=== PATIENT | female | born 1950 | race Caucasian/White ===

== ENCOUNTER 2019-08-21 12:24 | Inpatient (IN) ==
[2019-08-21] MEDS ORDERED: MetroNIDAZOLE 500 MG/100 ML 500 MG/100 ML BAG IVPB ONE (13:40)
[2019-08-21 13:44] LABS: Bilirubin,Urine Moderate (Negative); Blood,Urine Negative (Negative); Clarity,Urine Clear (Clear); Color,Urine Orange (Yellow); Glucose,Urine (UA) Normal (Normal); Ketones,Urine Trace mg/dL (Negative); Leukocyte Esterase,Urine Small (Negative); Nitrite,Urine Positive (Negative); PH,Urine 6.5 pH Units (5.0-8.0); Protein,Urine Trace mg/dL (Neg-Trace); Specific Gravity,Urine 1.018 (1.010-1.025); Urobilinogen,Urine Normal (Normal)
[2019-08-21 13:45] LABS: Bacteria,Urine None Seen per hpf (None-Few); Hyaline Casts,Urine None Seen per lpf (None-Few); RBC,Urine 0-3 per hpf (0-3); Squamous Epithelial Cell,Urine Many per lpf (None-Few)
[2019-08-21 13:56] LABS: Amorphous Sediment,Urine Few per hpf (Few)
[2019-08-21 14:00] LABS: Hemoglobin 13.8 g/dL (11.5-15.4); Lymphocytes # 0.4 K/mcL (0.6-4.6); Mean Corpuscular HGB Conc 32.1 g/dL (31.6-35.5); Mean Corpuscular Hemoglobin 29.4 pg (28.0-33.3); Mean Corpuscular Volume 91.7 fL (83.0-100.0); Mean Platelet Volume 10.6 fL (9.4-12.4); Platelet Count 300 K/mcL (140-400); Red Blood Count 4.69 M/mcL (3.82-4.97); Red Cell Distribution Width 13.6 % (11.5-14.5); White Blood Count 21.1 K/mcL (4.3-11.1)
[2019-08-21 14:02] LABS: INR 1.1; Prothrombin Time 12.7 Seconds (9.4-12.1)
[2019-08-21 14:04] LABS: Activated Partial Thrombo Time 25.2 Seconds (26.0-36.0)
[2019-08-21 14:16] LABS: Alanine Aminotransferase 305 Units/L (7-52); Albumin/Globulin Ratio 1.7 (1.1-2.2); Alkaline Phosphatase 196 Units/L (34-104); Amylase 179 Units/L (29-103); Aspartate Amino Transferase 447 Units/L (13-39); BUN/Creatinine Ratio 20 (6-26); Bilirubin,Total 4.9 mg/dL (0.3-1.0); Blood Urea Nitrogen 21 mg/dL (8-23); Calcium 9.5 mg/dL (8.6-10.3); Carbon Dioxide 27 mEq/L (23-29); Chloride 99 mEq/L (98-107); Globulin 2.4 g/dL (2.4-3.5); Glucose 143 mg/dL (70-105); Lipase 504 Units/L (11-82); Osmolality,Calculated 289 (280-300); Potassium 3.5 mEq/L (3.5-5.1); Sodium 137 mEq/L (136-145); Total Protein 6.4 g/dL (6.4-8.9); eGFR For African Americans > 60 (> 60); eGFR For Non-African Americans 51 (> 60)
[2019-08-21] MEDS ORDERED: Aspirin 81 MG TAB.CHEW PO STA (14:23)
[2019-08-21 14:31] LABS: Monocytes # 0.4 K/mcL (0.0-1.3); Neutrophils # 20.3 K/mcL (1.6-8.9); Platelet Estimate Normal (Normal)
[2019-08-21 14:46] LABS: Troponin I < 0.03 ng/mL (< 0.04)
[2019-08-21] MEDS ORDERED: 0.9 % Sodium Chloride 1,000 ML IVC SCH (15:15)
[2019-08-21] MEDS ORDERED: Acetaminophen 325 MG TABLET PO PRN (15:17)
[2019-08-21] MEDS ORDERED: Naloxone 0.4 MG/ML INJ IVP PRN (15:17)
[2019-08-21] MEDS ORDERED: D5% in Water 1,000 ML IVC PRN (15:23)
[2019-08-21] MEDS ORDERED: Dextrose Gel 15 GM/37.5 ML TUBE PO PRN ×2 (15:23)
[2019-08-21] MEDS ORDERED: Nitroglycerin 0.4 MG TAB.SUBL SL PRN (15:30)
[2019-08-21 15:44] LABS: Acetaminophen < 10 mcg/mL (10-20); Salicylate < 2.5 mg/dL (15.0-30.0)
[2019-08-21 16:07] LABS: Hepatitis B Surface Antigen Nonreactive (Nonreactive)
[2019-08-21 16:36] LABS: Hepatitis B Core IgM Nonreactive (Nonreactive)
[2019-08-21 16:37] LABS: Hepatitis C Virus Antibody Nonreactive (Nonreactive)
[2019-08-21 16:38] LABS: Hepatitis A Antibody IgM Nonreactive (Nonreactive)
[2019-08-21] MEDS ORDERED: *HR* Labetalol 20 MG/4 ML SYRINGE IVP PRN (17:27)
[2019-08-21] MEDS: Piperacillin/Tazobactam 3.375 GM in 0.9 % Sodium Chloride Mini Bag 100 ML IVPB SCH (18:22)
[2019-08-21] MEDS: Pantoprazole 40 MG VIAL IVP SCH (18:22)
[2019-08-21] MEDS: Insulin LISPRO 300 UNITS/3 ML VIAL SQ SCH (18:22)
[2019-08-21] MEDS ORDERED: Ibuprofen 600 MG TABLET PO ONE (20:15)
[2019-08-21] MEDS: Albuterol 2.5 MG/3 ML NEBULIZER IH PRN (20:24)
[2019-08-21] MEDS: Ipratropium/Albuterol Neb 3 ML IH SCH (23:36)
[2019-08-22] MEDS: Insulin LISPRO 300 UNITS/3 ML VIAL SQ SCH ×4 (01:02→17:48)
[2019-08-22] MEDS: *HR* Heparin 5,000 UNIT/ML VIAL SQ SCH ×4 (01:04→21:13)
[2019-08-22] MEDS: Piperacillin/Tazobactam 3.375 GM in 0.9 % Sodium Chloride Mini Bag 100 ML IVPB SCH ×3 (01:04→16:43)
[2019-08-22] MEDS: Ringers Solution, Lactated 1,000 ML IVC SCH (01:09)
[2019-08-22] MEDS: Ipratropium/Albuterol Neb 3 ML IH SCH ×4 (03:39→21:37)
[2019-08-22 04:57] LABS: Basophils % 0.1 %; Eosinophils % 0.2 %; Hematocrit 34.1 % (35.3-44.9); Hemoglobin 10.9 g/dL (11.5-15.4); Lymphocytes # 1.2 K/mcL (0.6-4.6); Lymphocytes % 5.6 %; Mean Corpuscular Hemoglobin 29.9 pg (28.0-33.3); Mean Corpuscular Volume 93.4 fL (83.0-100.0); Monocytes # 0.8 K/mcL (0.0-1.3); Monocytes % 3.9 %; Nucleated Red Blood Cells 0.1 /100 WBC (0); Platelet Count 232 K/mcL (140-400); Red Blood Count 3.65 M/mcL (3.82-4.97); Red Cell Distribution Width 13.8 % (11.5-14.5); Segmented Neutrophils % 88.2 %; White Blood Count 21.3 K/mcL (4.3-11.1)
[2019-08-22 05:10] LABS: Neutrophils # 18.8 K/mcL (1.6-8.9)
[2019-08-22 05:17] LABS: Amylase 68 Units/L (29-103); Lipase 129 Units/L (11-82)
[2019-08-22 05:29] LABS: Alanine Aminotransferase 291 Units/L (7-52); Albumin 3.6 g/dL (3.5-5.7); Albumin/Globulin Ratio 1.8 (1.1-2.2); Alkaline Phosphatase 150 Units/L (34-104); Aspartate Amino Transferase 423 Units/L (13-39); BUN/Creatinine Ratio 28 (6-26); Bilirubin,Total 14.5 mg/dL (0.3-1.0); Blood Urea Nitrogen 30 mg/dL (8-23); Calcium 8.7 mg/dL (8.6-10.3); Carbon Dioxide 26 mEq/L (23-29); Chloride 101 mEq/L (98-107); Glucose 96 mg/dL (70-105); Magnesium 1.6 mg/dL (1.6-2.6); Osmolality,Calculated 292 (280-300); Phosphorous 4.5 mg/dL (2.7-4.5); Potassium 3.4 mEq/L (3.5-5.1); Sodium 138 mEq/L (136-145); Total Protein 5.6 g/dL (6.4-8.9); eGFR For African Americans > 60 (> 60); eGFR For Non-African Americans 50 (> 60)
[2019-08-22 06:05] LABS: Acinetobacter baumannii by PCR Not Detected (Not Detect); Candida albicans by PCR Not Detected (Not Detect); Candida glabrata by PCR Not Detected (Not Detect); Candida krusei by PCR Not Detected (Not Detect); Candida parapsilosis by PCR Not Detected (Not Detect); Candida tropicalis by PCR Not Detected (Not Detect); Enterobacter cloacae Cmplx PCR Not Detected (Not Detect); Enterococcus by PCR Not Detected (Not Detect); Escherichia coli by PCR Not Detected (Not Detect); Klebsiella oxytoca by PCR DETECTED (Not Detect); Klebsiella pneumoniae by PCR Not Detected (Not Detect); Proteus by PCR Not Detected (Not Detect); Pseudomonas aeruginosa by PCR Not Detected (Not Detect); Serratia marcescens by PCR Not Detected (Not Detect); Staphylococcus aureus by PCR Not Detected (Not Detect); Staphylococcus by PCR Not Detected (Not Detect); Streptococcus agalactiae(B)PCR Not Detected (Not Detect); Streptococcus by PCR Not Detected (Not Detect); Streptococcus pneumoniae PCR Not Detected (Not Detect); Streptococcus pyogenes (A) PCR Not Detected (Not Detect); blaKPC Carbapenem-Resist Gene Not Detected (Not Detect)
[2019-08-22 06:07] LABS: Platelet Estimate Normal (Normal)
[2019-08-22] MEDS: Pantoprazole 40 MG VIAL IVP SCH (08:42)
[2019-08-22] MEDS: Isosorbide MONOnitrate (24 HR) 60 MG TAB.ER.24H PO SCH (08:42)
[2019-08-22 10:19] LABS: Immature Reticulocyte % 14.8 % (11.0-38.0); Retculocyte # 0.1 M/mcL (0.05-0.10)
[2019-08-22 10:29] LABS: INR 1.4; Prothrombin Time 16.3 Seconds (9.4-12.1)
[2019-08-22] MEDS: Tiotropium 18 MCG inhalation IH SCH (10:52)
[2019-08-22] MEDS ORDERED: Ibuprofen 400 MG TABLET PO ONE (21:34)
[2019-08-23] MEDS: Insulin LISPRO 300 UNITS/3 ML VIAL SQ SCH ×4 (00:20→17:50)
[2019-08-23] MEDS: Piperacillin/Tazobactam 3.375 GM in 0.9 % Sodium Chloride Mini Bag 100 ML IVPB SCH ×4 (00:24→23:57)
[2019-08-23 04:25] LABS: Basophils # 0.1 K/mcL (0.0-0.2); Basophils % 0.6 %; Eosinophils # 0.4 K/mcL (0.0-0.6); Eosinophils % 2.9 %; Hematocrit 27.8 % (35.3-44.9); Immature Granulocytes % 1.3 % (0-4); Lymphocytes # 1.3 K/mcL (0.6-4.6); Lymphocytes % 9.3 %; Mean Corpuscular HGB Conc 32.4 g/dL (31.6-35.5); Mean Corpuscular Hemoglobin 30.6 pg (28.0-33.3); Mean Corpuscular Volume 94.6 fL (83.0-100.0); Mean Platelet Volume 11.6 fL (9.4-12.4); Monocytes # 0.7 K/mcL (0.0-1.3); Monocytes % 4.6 %; Neutrophils # 11.7 K/mcL (1.6-8.9); Platelet Count 196 K/mcL (140-400); Red Blood Count 2.94 M/mcL (3.82-4.97); Red Cell Distribution Width 14.6 % (11.5-14.5); Segmented Neutrophils % 81.3 %; White Blood Count 14.4 K/mcL (4.3-11.1)
[2019-08-23 04:48] LABS: BUN/Creatinine Ratio 29 (6-26); Blood Urea Nitrogen 20 mg/dL (8-23); Calcium 8.5 mg/dL (8.6-10.3); Carbon Dioxide 30 mEq/L (23-29); Chloride 104 mEq/L (98-107); Glucose 97 mg/dL (70-105); Magnesium 1.9 mg/dL (1.6-2.6); Osmolality,Calculated 289 (280-300); Phosphorous 2.3 mg/dL (2.7-4.5); Potassium 3.4 mEq/L (3.5-5.1); Sodium 138 mEq/L (136-145); eGFR For African Americans > 60 (> 60); eGFR For Non-African Americans > 60 (> 60)
[2019-08-23 04:52] LABS: Large Platelets Present (Not Present); Platelet Estimate Normal (Normal)
[2019-08-23] MEDS ORDERED: Ringers Solution, Lactated 1,000 ML ONE (04:56)
[2019-08-23] MEDS: *HR* Heparin 5,000 UNIT/ML VIAL SQ SCH ×2 (04:59→13:45)
[2019-08-23] MEDS: Ringers Solution, Lactated 1,000 ML IVC SCH (05:01)
[2019-08-23] MEDS: Pantoprazole 40 MG VIAL IVP SCH (07:45)
[2019-08-23] MEDS: Isosorbide MONOnitrate (24 HR) 60 MG TAB.ER.24H PO SCH (07:45)
[2019-08-23 10:41] LABS: Alanine Aminotransferase 153 Units/L (7-52); Albumin 3.5 g/dL (3.5-5.7); Albumin/Globulin Ratio 1.6 (1.1-2.2); Alkaline Phosphatase 118 Units/L (34-104); Aspartate Amino Transferase 123 Units/L (13-39); BUN/Creatinine Ratio 31 (6-26); Bilirubin,Direct 1.2 mg/dL (0.0-0.2); Bilirubin,Indirect 1.9 mg/dL (0.0-1.0); Bilirubin,Total 3.1 mg/dL (0.3-1.0); Blood Urea Nitrogen 18 mg/dL (8-23); Calcium 8.8 mg/dL (8.6-10.3); Carbon Dioxide 26 mEq/L (23-29); Chloride 105 mEq/L (98-107); Gamma Glutamyl Transpeptidase 245 Units/L (7-64); Globulin 2.2 g/dL (2.4-3.5); Glucose 96 mg/dL (70-105); Lactate Dehydrogenase 465 Units/L (140-271); Lipase 171 Units/L (11-82); Osmolality,Calculated 288 (280-300); Potassium 3.5 mEq/L (3.5-5.1); Sodium 138 mEq/L (136-145); Total Protein 5.7 g/dL (6.4-8.9); eGFR For African Americans > 60 (> 60); eGFR For Non-African Americans > 60 (> 60)
[2019-08-23] MEDS: Tiotropium 18 MCG inhalation IH SCH (10:42)
[2019-08-23] MEDS ORDERED: Ringers Solution, Lactated 1,000 ML IVC SCH (23:45)
[2019-08-24] MEDS: *HR* Dextrose 50 % in Water (Syg) 50 ML SYRINGE IVP PRN ×2 (00:18→06:04)
[2019-08-24] MEDS: Insulin LISPRO 300 UNITS/3 ML VIAL SQ SCH ×5 (03:27→23:52)
[2019-08-24 04:55] LABS: Hematocrit 26.4 % (35.3-44.9); Hemoglobin 8.5 g/dL (11.5-15.4); Mean Corpuscular HGB Conc 32.2 g/dL (31.6-35.5); Mean Corpuscular Hemoglobin 30.6 pg (28.0-33.3); Mean Platelet Volume 11.2 fL (9.4-12.4); Platelet Count 196 K/mcL (140-400); Red Blood Count 2.78 M/mcL (3.82-4.97); Red Cell Distribution Width 14.7 % (11.5-14.5); Segmented Neutrophils % 78.8 %; White Blood Count 14.6 K/mcL (4.3-11.1)
[2019-08-24 04:56] LABS: Basophils # 0.1 K/mcL (0.0-0.2); Basophils % 0.6 %; Eosinophils # 0.4 K/mcL (0.0-0.6); Eosinophils % 2.7 %; Immature Granulocytes % 0.8 % (0-4); Lymphocytes # 1.4 K/mcL (0.6-4.6); Lymphocytes % 9.4 %; Monocytes # 1.1 K/mcL (0.0-1.3); Monocytes % 7.7 %; Neutrophils # 11.5 K/mcL (1.6-8.9)
[2019-08-24 05:16] LABS: Albumin 3.3 g/dL (3.5-5.7); Albumin/Globulin Ratio 1.3 (1.1-2.2); Bilirubin,Direct 0.9 mg/dL (0.0-0.2); Bilirubin,Indirect 1.3 mg/dL (0.0-1.0); Bilirubin,Total 2.2 mg/dL (0.3-1.0); Globulin 2.5 g/dL (2.4-3.5); Total Protein 5.8 g/dL (6.4-8.9)
[2019-08-24 05:18] LABS: % Iron Saturation 7 % (15-50); BUN/Creatinine Ratio 32 (6-26); Blood Urea Nitrogen 16 mg/dL (8-23); Calcium 8.5 mg/dL (8.6-10.3); Carbon Dioxide 25 mEq/L (23-29); Chloride 109 mEq/L (98-107); Glucose 73 mg/dL (70-105); Iron 20 mcg/dL (50-170); Magnesium 1.8 mg/dL (1.6-2.6); Osmolality,Calculated 296 (280-300); Potassium 3.9 mEq/L (3.5-5.1); Sodium 143 mEq/L (136-145); Transferrin 202 mg/dL (203-362); eGFR For African Americans > 60 (> 60); eGFR For Non-African Americans > 60 (> 60)
[2019-08-24 05:35] LABS: Ferritin 748 ng/mL (10-120)
[2019-08-24 05:42] LABS: Folate > 22.3 ng/mL (3.0-16.0); Vitamin B12 508 pg/mL (250-1100)
[2019-08-24] MEDS: Tiotropium 18 MCG inhalation IH SCH (07:53)
[2019-08-24] MEDS: Multivit/Ca/Min/Fe/FA 1 TAB TABLET PO SCH (08:35)
[2019-08-24] MEDS: Isosorbide MONOnitrate (24 HR) 60 MG TAB.ER.24H PO SCH (08:35)
[2019-08-24] MEDS: Piperacillin/Tazobactam 3.375 GM in 0.9 % Sodium Chloride Mini Bag 100 ML IVPB SCH ×2 (08:35→17:23)
[2019-08-24] MEDS: *HR* Promethazine 25 MG/ML VIAL IVP PRN (09:36)
[2019-08-24] MEDS ORDERED: Perflutren Lipid Microsphere 1.3 ML in 0.9 % Sodium Chloride 8.7 ML IVP ONE (10:55)
[2019-08-24] MEDS: Clindamycin 600 MG/50 ML 600 MG/50 ML IV.SOLN IVPB SCH ×2 (17:24→23:59)
[2019-08-24] MEDS: Lactobacillus 1 EACH CAP.SPRINK PO SCH (20:59)
[2019-08-24] MEDS: Albuterol 2.5 MG/3 ML NEBULIZER IH PRN (23:53)
[2019-08-25] MEDS: Piperacillin/Tazobactam 3.375 GM in 0.9 % Sodium Chloride Mini Bag 100 ML IVPB SCH ×2 (00:54→07:32)
[2019-08-25 02:07] LABS: Basophils # 0.1 K/mcL (0.0-0.2); Basophils % 0.5 %; Eosinophils # 0.2 K/mcL (0.0-0.6); Eosinophils % 1.4 %; Hematocrit 25.8 % (35.3-44.9); Hemoglobin 8.3 g/dL (11.5-15.4); Immature Granulocytes % 1.5 % (0-4); Lymphocytes # 1.7 K/mcL (0.6-4.6); Lymphocytes % 11.9 %; Mean Corpuscular HGB Conc 32.2 g/dL (31.6-35.5); Mean Corpuscular Hemoglobin 30.3 pg (28.0-33.3); Mean Corpuscular Volume 94.2 fL (83.0-100.0); Mean Platelet Volume 10.8 fL (9.4-12.4); Monocytes # 1.6 K/mcL (0.0-1.3); Monocytes % 11.6 %; Neutrophils # 10.1 K/mcL (1.6-8.9); Platelet Count 210 K/mcL (140-400); Red Blood Count 2.74 M/mcL (3.82-4.97); Red Cell Distribution Width 14.9 % (11.5-14.5); Segmented Neutrophils % 73.1 %; White Blood Count 13.8 K/mcL (4.3-11.1)
[2019-08-25 02:27] LABS: BUN/Creatinine Ratio 28 (6-26); Blood Urea Nitrogen 14 mg/dL (8-23); Calcium 8.5 mg/dL (8.6-10.3); Carbon Dioxide 28 mEq/L (23-29); Chloride 103 mEq/L (98-107); Glucose 63 mg/dL (70-105); Magnesium 1.8 mg/dL (1.6-2.6); Osmolality,Calculated 283 (280-300); Potassium 3.3 mEq/L (3.5-5.1); Sodium 137 mEq/L (136-145); eGFR For African Americans > 60 (> 60); eGFR For Non-African Americans > 60 (> 60)
[2019-08-25] MEDS: Albuterol 2.5 MG/3 ML NEBULIZER IH PRN (05:38)
[2019-08-25] MEDS: Insulin LISPRO 300 UNITS/3 ML VIAL SQ SCH ×3 (07:18→17:01)
[2019-08-25] MEDS: Lactobacillus 1 EACH CAP.SPRINK PO SCH ×2 (07:31→20:37)
[2019-08-25] MEDS: Multivit/Ca/Min/Fe/FA 1 TAB TABLET PO SCH (07:31)
[2019-08-25] MEDS: Clindamycin 600 MG/50 ML 600 MG/50 ML IV.SOLN IVPB SCH ×3 (07:32→23:45)
[2019-08-25] MEDS: Isosorbide MONOnitrate (24 HR) 60 MG TAB.ER.24H PO SCH (07:33)
[2019-08-25 08:08] LABS: Alanine Aminotransferase 74 Units/L (7-52); Albumin 3.1 g/dL (3.5-5.7); Albumin/Globulin Ratio 1.3 (1.1-2.2); Alkaline Phosphatase 83 Units/L (34-104); Aspartate Amino Transferase 43 Units/L (13-39); Bilirubin,Direct 0.7 mg/dL (0.0-0.2); Bilirubin,Total 1.7 mg/dL (0.3-1.0); Globulin 2.4 g/dL (2.4-3.5); Lipase 123 Units/L (11-82); Total Protein 5.5 g/dL (6.4-8.9)
[2019-08-25] MEDS: Tiotropium 18 MCG inhalation IH SCH (09:53)
[2019-08-25] MEDS: cefTRIAXone 2,000 MG in Water for inj. (sterile) 20 ML IVP SCH (14:22)
[2019-08-25] MEDS: Famotidine 20 MG TABLET PO SCH (20:37)
[2019-08-25] MEDS: MetroNIDAZOLE 500 MG/100 ML 500 MG/100 ML BAG IVPB SCH (21:57)
[2019-08-25] MEDS ORDERED: Ondansetron 4 MG/2 ML VIAL IVP PRN (23:20)
[2019-08-25] MEDS ORDERED: Morphine Sulfate 2 MG/ML SYRINGE IVP ONE (23:29)
[2019-08-25] MEDS: Pantoprazole 40 MG in 0.9 % Sodium Chloride Mini Bag 100 ML IVC SCH (23:44)
[2019-08-26] MEDS: Insulin LISPRO 300 UNITS/3 ML VIAL SQ SCH ×5 (00:10→23:52)
[2019-08-26] MEDS ORDERED: 0.9 % Sodium Chloride 250 ML ONE (01:28)
[2019-08-26] MEDS: *HR* Promethazine 25 MG/ML VIAL IVP PRN (03:12)
[2019-08-26] MEDS ORDERED: Morphine Sulfate 2 MG/ML SYRINGE IVP ONE (03:19)
[2019-08-26] MEDS: Pantoprazole 40 MG in 0.9 % Sodium Chloride Mini Bag 100 ML IVC SCH ×2 (04:38→10:20)
[2019-08-26] MEDS: Tiotropium 18 MCG inhalation IH SCH (07:37)
[2019-08-26 08:07] LABS: Hematocrit 28.5 % (35.3-44.9); Mean Corpuscular HGB Conc 31.6 g/dL (31.6-35.5); Mean Corpuscular Hemoglobin 29.6 pg (28.0-33.3); Mean Corpuscular Volume 93.8 fL (83.0-100.0); Mean Platelet Volume 11.2 fL (9.4-12.4); Platelet Count 238 K/mcL (140-400); Red Blood Count 3.04 M/mcL (3.82-4.97); Red Cell Distribution Width 14.6 % (11.5-14.5)
[2019-08-26 08:26] LABS: Eosinophils # 0.3 K/mcL (0.0-0.6); Lymphocytes # 1.8 K/mcL (0.6-4.6); Monocytes # 1.2 K/mcL (0.0-1.3); Neutrophils # 11.7 K/mcL (1.6-8.9)
[2019-08-26 08:27] LABS: Platelet Estimate Normal (Normal); Reactive Lymphocytes Present (Not Present)
[2019-08-26 08:28] LABS: Alanine Aminotransferase 183 Units/L (7-52); Albumin 3.3 g/dL (3.5-5.7); Albumin/Globulin Ratio 1.2 (1.1-2.2); Alkaline Phosphatase 117 Units/L (34-104); Aspartate Amino Transferase 180 Units/L (13-39); BUN/Creatinine Ratio 17 (6-26); Bilirubin,Direct 4.1 mg/dL (0.0-0.2); Bilirubin,Indirect 1.6 mg/dL (0.0-1.0); Bilirubin,Total 5.7 mg/dL (0.3-1.0); Blood Urea Nitrogen 9 mg/dL (8-23); Calcium 8.5 mg/dL (8.6-10.3); Carbon Dioxide 28 mEq/L (23-29); Chloride 99 mEq/L (98-107); Globulin 2.7 g/dL (2.4-3.5); Glucose 90 mg/dL (70-105); Lipase 562 Units/L (11-82); Magnesium 1.8 mg/dL (1.6-2.6); Osmolality,Calculated 274 (280-300); Potassium 3.6 mEq/L (3.5-5.1); Sodium 133 mEq/L (136-145); eGFR For African Americans > 60 (> 60); eGFR For Non-African Americans > 60 (> 60)
[2019-08-26] MEDS: Clindamycin 600 MG/50 ML 600 MG/50 ML IV.SOLN IVPB SCH ×2 (10:20→17:46)
[2019-08-26] MEDS: Aspirin Enteric Coated 81 MG Tablet PO SCH (10:21)
[2019-08-26] MEDS: Lactobacillus 1 EACH CAP.SPRINK PO SCH ×2 (10:21→20:54)
[2019-08-26] MEDS: Multivit/Ca/Min/Fe/FA 1 TAB TABLET PO SCH (10:21)
[2019-08-26] MEDS: Isosorbide MONOnitrate (24 HR) 60 MG TAB.ER.24H PO SCH (10:21)
[2019-08-26] MEDS: Famotidine 20 MG TABLET PO SCH ×2 (10:21→20:54)
[2019-08-26] MEDS: Losartan/HCTZ 50-12.5 TABLET PO SCH (10:32)
[2019-08-26] MEDS: MetroNIDAZOLE 500 MG/100 ML 500 MG/100 ML BAG IVPB SCH ×2 (11:49→20:54)
[2019-08-26] MEDS: cefTRIAXone 2,000 MG in Water for inj. (sterile) 20 ML IVP SCH (16:03)
[2019-08-27 01:43] LABS: Hemoglobin 8.6 g/dL (11.5-15.4); Mean Corpuscular HGB Conc 31.9 g/dL (31.6-35.5); Mean Corpuscular Hemoglobin 29.9 pg (28.0-33.3); Mean Corpuscular Volume 93.8 fL (83.0-100.0); Platelet Count 252 K/mcL (140-400); Red Blood Count 2.88 M/mcL (3.82-4.97); Red Cell Distribution Width 14.5 % (11.5-14.5); White Blood Count 12.6 K/mcL (4.3-11.1)
[2019-08-27 02:04] LABS: Alanine Aminotransferase 220 Units/L (7-52); Albumin 2.9 g/dL (3.5-5.7); Albumin/Globulin Ratio 1.3 (1.1-2.2); Alkaline Phosphatase 133 Units/L (34-104); Aspartate Amino Transferase 186 Units/L (13-39); BUN/Creatinine Ratio 22 (6-26); Bilirubin,Direct 1.6 mg/dL (0.0-0.2); Bilirubin,Indirect 1.3 mg/dL (0.0-1.0); Bilirubin,Total 2.9 mg/dL (0.3-1.0); Blood Urea Nitrogen 11 mg/dL (8-23); Calcium 8.2 mg/dL (8.6-10.3); Carbon Dioxide 26 mEq/L (23-29); Chloride 101 mEq/L (98-107); Globulin 2.2 g/dL (2.4-3.5); Glucose 73 mg/dL (70-105); Magnesium 1.9 mg/dL (1.6-2.6); Osmolality,Calculated 274 (280-300); Sodium 133 mEq/L (136-145); Total Protein 5.1 g/dL (6.4-8.9); eGFR For African Americans > 60 (> 60); eGFR For Non-African Americans > 60 (> 60)
[2019-08-27] MEDS: Clindamycin 600 MG/50 ML 600 MG/50 ML IV.SOLN IVPB SCH ×3 (02:17→17:45)
[2019-08-27 02:32] LABS: Eosinophils # 0.8 K/mcL (0.0-0.6); Monocytes # 1.3 K/mcL (0.0-1.3); Neutrophils # 8.6 K/mcL (1.6-8.9)
[2019-08-27] MEDS: MetroNIDAZOLE 500 MG/100 ML 500 MG/100 ML BAG IVPB SCH ×3 (03:28→22:18)
[2019-08-27] MEDS: Insulin LISPRO 300 UNITS/3 ML VIAL SQ SCH ×3 (05:45→17:42)
[2019-08-27] MEDS: Tiotropium 18 MCG inhalation IH SCH (07:43)
[2019-08-27] MEDS: Famotidine 20 MG TABLET PO SCH ×2 (11:10→19:48)
[2019-08-27] MEDS: Multivit/Ca/Min/Fe/FA 1 TAB TABLET PO SCH (11:10)
[2019-08-27] MEDS: Aspirin Enteric Coated 81 MG Tablet PO SCH (11:10)
[2019-08-27] MEDS: Losartan/HCTZ 50-12.5 TABLET PO SCH (11:10)
[2019-08-27] MEDS: Lactobacillus 1 EACH CAP.SPRINK PO SCH ×2 (11:10→19:47)
[2019-08-27] MEDS: Isosorbide MONOnitrate (24 HR) 60 MG TAB.ER.24H PO SCH (11:10)
[2019-08-27] MEDS ORDERED: Potassium Chloride Elixir 20 MEQ/15 ML UDC PO ONE (16:20)
[2019-08-27] MEDS: cefTRIAXone 2,000 MG in Water for inj. (sterile) 20 ML IVP SCH (16:34)
[2019-08-28] MEDS: Clindamycin 600 MG/50 ML 600 MG/50 ML IV.SOLN IVPB SCH (02:51)
[2019-08-28] MEDS: MetroNIDAZOLE 500 MG/100 ML 500 MG/100 ML BAG IVPB SCH (03:33)
[2019-08-28 06:03] LABS: Hematocrit 27.6 % (35.3-44.9); Mean Corpuscular HGB Conc 32.6 g/dL (31.6-35.5); Mean Corpuscular Hemoglobin 30.3 pg (28.0-33.3); Mean Corpuscular Volume 92.9 fL (83.0-100.0); Mean Platelet Volume 10.9 fL (9.4-12.4); Platelet Count 310 K/mcL (140-400); Red Blood Count 2.97 M/mcL (3.82-4.97); Red Cell Distribution Width 14.6 % (11.5-14.5); White Blood Count 11.4 K/mcL (4.3-11.1)
[2019-08-28 06:22] LABS: Alanine Aminotransferase 144 Units/L (7-52); Albumin 3.1 g/dL (3.5-5.7); Albumin/Globulin Ratio 1.1 (1.1-2.2); Alkaline Phosphatase 126 Units/L (34-104); Aspartate Amino Transferase 64 Units/L (13-39); BUN/Creatinine Ratio 17 (6-26); Bilirubin,Direct 0.6 mg/dL (0.0-0.2); Bilirubin,Indirect 0.9 mg/dL (0.0-1.0); Bilirubin,Total 1.5 mg/dL (0.3-1.0); Blood Urea Nitrogen 7 mg/dL (8-23); Calcium 8.6 mg/dL (8.6-10.3); Carbon Dioxide 25 mEq/L (23-29); Chloride 103 mEq/L (98-107); Globulin 2.7 g/dL (2.4-3.5); Glucose 76 mg/dL (70-105); Lipase 148 Units/L (11-82); Magnesium 1.8 mg/dL (1.6-2.6); Osmolality,Calculated 281 (280-300); Potassium 3.4 mEq/L (3.5-5.1); Sodium 137 mEq/L (136-145); Total Protein 5.8 g/dL (6.4-8.9); eGFR For African Americans > 60 (> 60); eGFR For Non-African Americans > 60 (> 60)
[2019-08-28 06:35] LABS: Eosinophils # 0.5 K/mcL (0.0-0.6); Hypochromasia Present (Not Present); Lymphocytes # 0.9 K/mcL (0.6-4.6); Monocytes # 0.5 K/mcL (0.0-1.3); Neutrophils # 9.4 K/mcL (1.6-8.9); Platelet Estimate Normal (Normal); Reactive Lymphocytes Present (Not Present)
[2019-08-28] MEDS: Famotidine 20 MG TABLET PO SCH ×2 (07:50→22:01)
[2019-08-28] MEDS: Losartan/HCTZ 50-12.5 TABLET PO SCH (07:50)
[2019-08-28] MEDS: Lactobacillus 1 EACH CAP.SPRINK PO SCH ×2 (07:50→22:01)
[2019-08-28] MEDS: Aspirin Enteric Coated 81 MG Tablet PO SCH (07:50)
[2019-08-28] MEDS: Isosorbide MONOnitrate (24 HR) 60 MG TAB.ER.24H PO SCH (07:50)
[2019-08-28] MEDS: Multivit/Ca/Min/Fe/FA 1 TAB TABLET PO SCH (07:50)
[2019-08-28] MEDS: metroNIDAZOLE 500 MG TABLET PO SCH ×3 (10:21→22:01)
[2019-08-28] MEDS: levoFLOXacin 500 MG TABLET PO SCH (12:13)
[2019-08-28] MEDS: Tiotropium 18 MCG inhalation IH SCH (15:39)
[2019-08-29 05:46] LABS: Basophils # 0.1 K/mcL (0.0-0.2); Basophils % 1.1 %; Eosinophils # 0.4 K/mcL (0.0-0.6); Eosinophils % 3.6 %; Hematocrit 30.9 % (35.3-44.9); Immature Granulocytes % 4.7 % (0-4); Mean Corpuscular HGB Conc 32.4 g/dL (31.6-35.5); Mean Corpuscular Hemoglobin 30.1 pg (28.0-33.3); Mean Corpuscular Volume 93.1 fL (83.0-100.0); Mean Platelet Volume 10.5 fL (9.4-12.4); Monocytes # 0.9 K/mcL (0.0-1.3); Monocytes % 7.9 %; Neutrophils # 7.1 K/mcL (1.6-8.9); Platelet Count 362 K/mcL (140-400); Red Blood Count 3.32 M/mcL (3.82-4.97); Red Cell Distribution Width 14.7 % (11.5-14.5); Segmented Neutrophils % 64.7 %
[2019-08-29 06:10] LABS: Alanine Aminotransferase 110 Units/L (7-52); Albumin 3.3 g/dL (3.5-5.7); Albumin/Globulin Ratio 1.1 (1.1-2.2); Alkaline Phosphatase 130 Units/L (34-104); Aspartate Amino Transferase 48 Units/L (13-39); BUN/Creatinine Ratio 14 (6-26); Bilirubin,Direct 0.6 mg/dL (0.0-0.2); Bilirubin,Indirect 0.9 mg/dL (0.0-1.0); Bilirubin,Total 1.5 mg/dL (0.3-1.0); Blood Urea Nitrogen 6 mg/dL (8-23); Calcium 8.8 mg/dL (8.6-10.3); Carbon Dioxide 25 mEq/L (23-29); Chloride 102 mEq/L (98-107); Globulin 2.9 g/dL (2.4-3.5); Glucose 103 mg/dL (70-105); Lipase 138 Units/L (11-82); Magnesium 1.8 mg/dL (1.6-2.6); Osmolality,Calculated 278 (280-300); Potassium 3.5 mEq/L (3.5-5.1); Sodium 135 mEq/L (136-145); Total Protein 6.2 g/dL (6.4-8.9); eGFR For African Americans > 60 (> 60); eGFR For Non-African Americans > 60 (> 60)
[2019-08-29 06:35] LABS: Anisocytosis 1+ (Not Present); Microcytosis Present (Not Present)
[2019-08-29 06:36] LABS: Platelet Estimate Normal (Normal); Reactive Lymphocytes Present (Not Present)
[2019-08-29 07:27] VITALS: BP 141/71
[2019-08-29] MEDS: Aspirin Enteric Coated 81 MG Tablet PO SCH (07:52)
[2019-08-29] MEDS: Lactobacillus 1 EACH CAP.SPRINK PO SCH (07:52)
[2019-08-29] MEDS: metroNIDAZOLE 500 MG TABLET PO SCH (07:52)
[2019-08-29] MEDS: Isosorbide MONOnitrate (24 HR) 60 MG TAB.ER.24H PO SCH (07:53)
[2019-08-29] MEDS: Losartan/HCTZ 50-12.5 TABLET PO SCH (07:53)
[2019-08-29] MEDS: levoFLOXacin 500 MG TABLET PO SCH (07:53)
[2019-08-29] MEDS: Famotidine 20 MG TABLET PO SCH (07:53)
[2019-08-29] MEDS: Multivit/Ca/Min/Fe/FA 1 TAB TABLET PO SCH (07:54)
[2019-08-29] MEDS: Tiotropium 18 MCG inhalation IH SCH (08:25)
[2019-08-30 10:05] LABS: ANA IgG by ELISA NONE DETECTED (None Detected)
[2019-08-31 09:02] LABS: Serine Protease-3 Antibody 4 AU/mL (0-19)
== END 2019-08-29 16:04 | disposition home health service (06) | DRG 871 ==
LOC: 3ANU 12:24 → EMEROOARM 12:24 → 3ANU 16:34 → SUATTDRO 08-22 14:19
PROVIDERS: ADMIT Internal Medicine; ATTEND Pharmacist

== ENCOUNTER 2021-06-02 14:09 | Inpatient (IN) ==
[2021-06-02] MEDS ORDERED: 0.9 % Sodium Chloride 1,000 ML IVC ONE (14:39)
[2021-06-02] MEDS ORDERED: *HR* FentaNYL (PF) 100 MCG/2 ML VIAL IVP ONE (14:39)
[2021-06-02] MEDS ORDERED: Ondansetron 4 MG/2 ML VIAL IVP ONE (14:39)
[2021-06-02] MEDS ORDERED: Ampicillin/Sulbactam 1,500 MG in 0.9 % Sodium Chloride Mini Bag 100 ML IVPB ONE (14:40)
[2021-06-02 15:17] LABS: Basophils % 0.2 %; Hematocrit 46.5 % (35.3-44.9); Hemoglobin 15.2 g/dL (11.5-15.4); Immature Granulocytes % 0.5 % (0-4); Lymphocytes % 5.1 %; Mean Corpuscular HGB Conc 32.7 g/dL (31.6-35.5); Mean Corpuscular Hemoglobin 29.7 pg (28.0-33.3); Mean Corpuscular Volume 90.8 fL (83.0-100.0); Mean Platelet Volume 11.3 fL (9.4-12.4); Monocytes # 0.7 K/mcL (0.0-1.3); Monocytes % 3.5 %; Neutrophils # 17.6 K/mcL (1.6-8.9); Platelet Count 326 K/mcL (140-400); Red Blood Count 5.12 M/mcL (3.82-4.97); Red Cell Distribution Width 13.8 % (11.5-14.5); Segmented Neutrophils % 90.7 %; White Blood Count 19.4 K/mcL (4.3-11.1)
[2021-06-02] MEDS ORDERED: 0.9 % Sodium Chloride 500 ML IVC ONE (15:22)
[2021-06-02 15:24] LABS: INR 1.2; Prothrombin Time 13.1 Seconds (9.4-12.1)
[2021-06-02 15:26] LABS: Activated Partial Thrombo Time 25.6 Seconds (26.0-36.0)
[2021-06-02 15:49] LABS: Alanine Aminotransferase 107 Units/L (7-52); Albumin 4.3 g/dL (3.5-5.7); Albumin/Globulin Ratio 1.5 (1.1-2.2); Alkaline Phosphatase 116 Units/L (34-104); Aspartate Amino Transferase 106 Units/L (13-39); BUN/Creatinine Ratio 20 (6-26); Bilirubin,Direct 0.4 mg/dL (0.0-0.2); Bilirubin,Indirect 0.8 mg/dL (0.0-1.0); Bilirubin,Total 1.2 mg/dL (0.3-1.0); Blood Urea Nitrogen 18 mg/dL (8-23); Calcium 9.4 mg/dL (8.6-10.3); Carbon Dioxide 22 mEq/L (23-29); Chloride 102 mEq/L (98-107); Globulin 2.8 g/dL (2.4-3.5); Glucose 129 mg/dL (70-105); Lipase 1070 Units/L (11-82); Osmolality,Calculated 290 (280-300); Potassium 3.9 mEq/L (3.5-5.1); Sodium 138 mEq/L (136-145); Total Protein 7.1 g/dL (6.4-8.9); Troponin I 0.03 ng/mL (< 0.04); eGFR For African Americans > 60 (> 60); eGFR For Non-African Americans > 60 (> 60)
[2021-06-02] MEDS ORDERED: Vancomycin 1,250 MG/262.5 ML IV.SOLN IVPB ONE (16:01)
[2021-06-02] MEDS ORDERED: Piperacillin/Tazobactam 3.375 GM in 0.9 % Sodium Chloride Mini Bag 100 ML IVPB ONE (16:01)
[2021-06-02] MEDS ORDERED: Ondansetron 4 MG/2 ML VIAL IVP PRN (17:21)
[2021-06-02] MEDS ORDERED: Naloxone 0.4 MG/ML INJ IVP PRN (17:21)
[2021-06-02] MEDS ORDERED: Ringers Solution, Lactated 1,000 ML IVC SCH (17:30)
[2021-06-02 19:01] LABS: Adenovirus Not Detected (Not Detect); Coronavirus 229E Not Detected (Not Detect); Coronavirus HKU1 Not Detected (Not Detect); Coronavirus NL63 Not Detected (Not Detect); Coronavirus OC43 Not Detected (Not Detect)
[2021-06-02 19:03] LABS: Bordetella Pertussis Not Detected (Not Detect); Chlamydophila pneumoniae Not Detected (Not Detect); Human Metapneumovirus Not Detected (Not Detect); Human Rhinovirus/Enterovirus Not Detected (Not Detect); Influenza A Subtype 2009 H1 Not Detected (Not Detect); Influenza B Not Detected (Not Detect); Mycoplasma pneumoniae Not Detected (Not Detect); Parainfluenza Virus 1 Not Detected (Not Detect); Parainfluenza Virus 2 Not Detected (Not Detect); Parainfluenza Virus 3 Not Detected (Not Detect); Parainfluenza Virus 4 Not Detected (Not Detect); Respiratory Syncytial Virus Not Detected (Not Detect); SARS-CoV-2 DETECTED (Not Detect)
[2021-06-02] MEDS: Budesonide/Formoterol 160/4.5 1 PUFF INH IH SCH (21:02)
[2021-06-02] MEDS: BuPROPion SR (12 HR) 150 MG TABLET PO SCH (21:38)
[2021-06-02] MEDS: Pantoprazole 40 MG VIAL IVP SCH (21:38)
[2021-06-02] MEDS: Morphine Sulfate 2 MG/ML SYRINGE IVP PRN (21:41)
[2021-06-03 01:42] LABS: Basophils % 0.1 %; Eosinophils % 0.1 %; Hematocrit 37.7 % (35.3-44.9); Immature Granulocytes % 0.3 % (0-4); Lymphocytes # 1.1 K/mcL (0.6-4.6); Lymphocytes % 7.9 %; Mean Corpuscular HGB Conc 32.1 g/dL (31.6-35.5); Mean Corpuscular Hemoglobin 29.7 pg (28.0-33.3); Mean Corpuscular Volume 92.6 fL (83.0-100.0); Monocytes # 0.6 K/mcL (0.0-1.3); Monocytes % 4.5 %; Neutrophils # 11.8 K/mcL (1.6-8.9); Platelet Count 220 K/mcL (140-400); Red Blood Count 4.07 M/mcL (3.82-4.97); Red Cell Distribution Width 14.1 % (11.5-14.5); Segmented Neutrophils % 87.1 %; White Blood Count 13.6 K/mcL (4.3-11.1)
[2021-06-03 01:44] LABS: Hemoglobin 12.1 g/dL (11.5-15.4)
[2021-06-03 02:28] LABS: Alanine Aminotransferase 75 Units/L (7-52); Albumin 3.5 g/dL (3.5-5.7); Albumin/Globulin Ratio 1.6 (1.1-2.2); Alkaline Phosphatase 82 Units/L (34-104); Aspartate Amino Transferase 64 Units/L (13-39); BUN/Creatinine Ratio 26 (6-26); Bilirubin,Total 0.9 mg/dL (0.3-1.0); Blood Urea Nitrogen 20 mg/dL (8-23); Calcium 8.2 mg/dL (8.6-10.3); Carbon Dioxide 21 mEq/L (23-29); Chloride 109 mEq/L (98-107); Chol/HDL Ratio 1.8 (0-4.9); Cholesterol 96 mg/dL (< 200); Globulin 2.2 g/dL (2.4-3.5); Glucose 86 mg/dL (70-105); HDL Cholesterol 52 mg/dL (40-59); LDL Cholesterol,Calculated 34 mg/dL (< 100); Osmolality,Calculated 284 (280-300); Sodium 136 mEq/L (136-145); Total Protein 5.7 g/dL (6.4-8.9); Triglycerides 49 mg/dL (< 150); eGFR For African Americans > 60 (> 60); eGFR For Non-African Americans > 60 (> 60)
[2021-06-03 04:53] LABS: Bilirubin,Urine Negative (Negative); Blood,Urine Small (Negative); Clarity,Urine Clear (Clear); Color,Urine Yellow (Yellow); Glucose,Urine (UA) Normal (Normal); Ketones,Urine Negative (Negative); Leukocyte Esterase,Urine Negative (Negative); Mucus,Urine Few per lpf (None-Few); Nitrite,Urine Negative (Negative); PH,Urine 5.5 pH Units (5.0-8.0); Protein,Urine Trace mg/dL (Neg-Trace); Specific Gravity,Urine 1.025 (1.010-1.025); Squamous Epithelial Cell,Urine Few per hpf (None-Few); Urobilinogen,Urine Normal (Normal)
[2021-06-03] MEDS: Pantoprazole 40 MG VIAL IVP SCH ×2 (05:29→20:39)
[2021-06-03] MEDS: Morphine Sulfate 2 MG/ML SYRINGE IVP PRN ×2 (05:29→20:40)
[2021-06-03] MEDS: Budesonide/Formoterol 160/4.5 1 PUFF INH IH SCH ×2 (10:40→20:56)
[2021-06-03] MEDS: Aspirin Enteric Coated 81 MG Tablet PO SCH (10:42)
[2021-06-03] MEDS: BuPROPion SR (12 HR) 150 MG TABLET PO SCH ×2 (10:43→20:40)
[2021-06-03] MEDS: Isosorbide MONOnitrate (24 HR) 60 MG TAB.ER.24H PO SCH (10:43)
[2021-06-04] MEDS: Pantoprazole 40 MG VIAL IVP SCH ×2 (05:10→17:53)
[2021-06-04 05:34] LABS: Basophils # 0.1 K/mcL (0.0-0.2); Basophils % 0.5 %; Eosinophils # 0.2 K/mcL (0.0-0.6); Eosinophils % 1.7 %; Hematocrit 32.5 % (35.3-44.9); Hemoglobin 10.6 g/dL (11.5-15.4); Immature Granulocytes % 0.7 % (0-4); Mean Corpuscular HGB Conc 32.6 g/dL (31.6-35.5); Mean Corpuscular Hemoglobin 30.7 pg (28.0-33.3); Mean Corpuscular Volume 94.2 fL (83.0-100.0); Mean Platelet Volume 11.1 fL (9.4-12.4); Monocytes # 0.6 K/mcL (0.0-1.3); Monocytes % 5.9 %; Platelet Count 176 K/mcL (140-400); Red Blood Count 3.45 M/mcL (3.82-4.97); Red Cell Distribution Width 14.4 % (11.5-14.5); Segmented Neutrophils % 81.2 %; White Blood Count 9.8 K/mcL (4.3-11.1)
[2021-06-04 05:50] LABS: Alanine Aminotransferase 41 Units/L (7-52); Albumin 3.2 g/dL (3.5-5.7); Albumin/Globulin Ratio 1.3 (1.1-2.2); Alkaline Phosphatase 71 Units/L (34-104); Aspartate Amino Transferase 29 Units/L (13-39); BUN/Creatinine Ratio 24 (6-26); Bilirubin,Total 0.5 mg/dL (0.3-1.0); Blood Urea Nitrogen 16 mg/dL (8-23); Calcium 8.5 mg/dL (8.6-10.3); Carbon Dioxide 26 mEq/L (23-29); Chloride 105 mEq/L (98-107); Globulin 2.4 g/dL (2.4-3.5); Glucose 97 mg/dL (70-105); Osmolality,Calculated 279 (280-300); Potassium 3.9 mEq/L (3.5-5.1); Sodium 134 mEq/L (136-145); Total Protein 5.6 g/dL (6.4-8.9); eGFR For African Americans > 60 (> 60); eGFR For Non-African Americans > 60 (> 60)
[2021-06-04] MEDS: Budesonide/Formoterol 160/4.5 1 PUFF INH IH SCH ×2 (08:11→19:57)
[2021-06-04] MEDS: Isosorbide MONOnitrate (24 HR) 60 MG TAB.ER.24H PO SCH (09:18)
[2021-06-04] MEDS: BuPROPion SR (12 HR) 150 MG TABLET PO SCH ×2 (09:18→21:29)
[2021-06-04] MEDS: Aspirin Enteric Coated 81 MG Tablet PO SCH (09:18)
[2021-06-04] MEDS ORDERED: *HR* Metoprolol 5 MG/5 ML VIAL IVP ONE (10:21)
[2021-06-05] MEDS: 0.9 % Sodium Chloride 1,000 ML IVC SCH ×2 (03:35→13:55)
[2021-06-05 05:47] LABS: Basophils # 0.1 K/mcL (0.0-0.2); Basophils % 0.5 %; Eosinophils # 0.2 K/mcL (0.0-0.6); Eosinophils % 2.2 %; Hemoglobin 10.8 g/dL (11.5-15.4); Immature Granulocytes % 0.7 % (0-4); Lymphocytes % 9.3 %; Mean Corpuscular HGB Conc 32.7 g/dL (31.6-35.5); Mean Corpuscular Hemoglobin 30.6 pg (28.0-33.3); Mean Corpuscular Volume 93.5 fL (83.0-100.0); Mean Platelet Volume 11.1 fL (9.4-12.4); Monocytes % 9.6 %; Neutrophils # 8.3 K/mcL (1.6-8.9); Platelet Count 209 K/mcL (140-400); Red Blood Count 3.53 M/mcL (3.82-4.97); Red Cell Distribution Width 14.2 % (11.5-14.5); Segmented Neutrophils % 77.7 %; White Blood Count 10.7 K/mcL (4.3-11.1)
[2021-06-05] MEDS: Pantoprazole 40 MG VIAL IVP SCH ×2 (06:22→18:23)
[2021-06-05] MEDS: Budesonide/Formoterol 160/4.5 1 PUFF INH IH SCH ×2 (07:50→20:40)
[2021-06-05] MEDS: Isosorbide MONOnitrate (24 HR) 60 MG TAB.ER.24H PO SCH (09:40)
[2021-06-05] MEDS: Aspirin Enteric Coated 81 MG Tablet PO SCH (09:40)
[2021-06-05] MEDS: BuPROPion SR (12 HR) 150 MG TABLET PO SCH ×2 (09:40→22:06)
[2021-06-06] MEDS: Morphine Sulfate 2 MG/ML SYRINGE IVP PRN (01:33)
[2021-06-06] MEDS: Pantoprazole 40 MG VIAL IVP SCH (05:39)
[2021-06-06] MEDS: 0.9 % Sodium Chloride 1,000 ML IVC SCH ×2 (05:40→06:00)
[2021-06-06 06:32] LABS: Basophils % 0.3 %; Eosinophils # 0.2 K/mcL (0.0-0.6); Hemoglobin 10.1 g/dL (11.5-15.4); Immature Granulocytes % 0.5 % (0-4); Lymphocytes # 1.1 K/mcL (0.6-4.6); Mean Corpuscular HGB Conc 32.6 g/dL (31.6-35.5); Mean Corpuscular Hemoglobin 30.3 pg (28.0-33.3); Mean Corpuscular Volume 93.1 fL (83.0-100.0); Mean Platelet Volume 10.8 fL (9.4-12.4); Monocytes # 1.5 K/mcL (0.0-1.3); Monocytes % 11.9 %; Neutrophils # 9.4 K/mcL (1.6-8.9); Platelet Count 257 K/mcL (140-400); Red Blood Count 3.33 M/mcL (3.82-4.97); Red Cell Distribution Width 14.1 % (11.5-14.5); Segmented Neutrophils % 76.3 %; White Blood Count 12.3 K/mcL (4.3-11.1)
[2021-06-06 06:51] LABS: BUN/Creatinine Ratio 19 (6-26); Blood Urea Nitrogen 11 mg/dL (8-23); Calcium 8.1 mg/dL (8.6-10.3); Carbon Dioxide 26 mEq/L (23-29); Chloride 105 mEq/L (98-107); Glucose 78 mg/dL (70-105); Osmolality,Calculated 282 (280-300); Potassium 3.2 mEq/L (3.5-5.1); Sodium 137 mEq/L (136-145); eGFR For African Americans > 60 (> 60); eGFR For Non-African Americans > 60 (> 60)
[2021-06-06] MEDS: Budesonide/Formoterol 160/4.5 1 PUFF INH IH SCH ×2 (08:00→19:51)
[2021-06-06] MEDS: BuPROPion SR (12 HR) 150 MG TABLET PO SCH ×2 (08:12→20:20)
[2021-06-06] MEDS: Isosorbide MONOnitrate (24 HR) 60 MG TAB.ER.24H PO SCH (08:12)
[2021-06-06] MEDS: Aspirin Enteric Coated 81 MG Tablet PO SCH (08:12)
[2021-06-06] MEDS ORDERED: Isovue-370 500 ML BOTTLE IVP ONE (13:28)
[2021-06-06] MEDS ORDERED: Furosemide 20 MG/2 ML VIAL IVP ONE (17:14)
[2021-06-07 04:00] LABS: Basophils % 0.2 %; Hemoglobin 10.9 g/dL (11.5-15.4); Lymphocytes # 0.8 K/mcL (0.6-4.6); Lymphocytes % 6.3 %; Mean Corpuscular Hemoglobin 30.3 pg (28.0-33.3); Mean Corpuscular Volume 91.7 fL (83.0-100.0); Mean Platelet Volume 10.8 fL (9.4-12.4); Monocytes # 0.4 K/mcL (0.0-1.3); Monocytes % 2.8 %; Neutrophils # 11.7 K/mcL (1.6-8.9); Platelet Count 304 K/mcL (140-400); Red Cell Distribution Width 13.9 % (11.5-14.5); Segmented Neutrophils % 89.7 %; White Blood Count 13.1 K/mcL (4.3-11.1)
[2021-06-07 04:19] LABS: BUN/Creatinine Ratio 22 (6-26); Blood Urea Nitrogen 11 mg/dL (8-23); Calcium 8.7 mg/dL (8.6-10.3); Carbon Dioxide 26 mEq/L (23-29); Chloride 104 mEq/L (98-107); Glucose 116 mg/dL (70-105); Osmolality,Calculated 284 (280-300); Potassium 3.5 mEq/L (3.5-5.1); Sodium 137 mEq/L (136-145); eGFR For African Americans > 60 (> 60); eGFR For Non-African Americans > 60 (> 60)
[2021-06-07] MEDS: BuPROPion SR (12 HR) 150 MG TABLET PO SCH ×2 (07:46→21:16)
[2021-06-07] MEDS: Aspirin Enteric Coated 81 MG Tablet PO SCH (07:46)
[2021-06-07] MEDS: Isosorbide MONOnitrate (24 HR) 60 MG TAB.ER.24H PO SCH (07:58)
[2021-06-07] MEDS: Budesonide/Formoterol 160/4.5 1 PUFF INH IH SCH ×2 (09:52→21:03)
[2021-06-07] MEDS ORDERED: Furosemide 20 MG/2 ML VIAL IVP ONE (11:09)
[2021-06-08 05:57] LABS: Basophils % 0.2 %; Eosinophils % 0.1 %; Hematocrit 30.8 % (35.3-44.9); Hemoglobin 10.1 g/dL (11.5-15.4); Immature Granulocytes % 1.5 % (0-4); Lymphocytes # 1.8 K/mcL (0.6-4.6); Lymphocytes % 12.5 %; Mean Corpuscular HGB Conc 32.8 g/dL (31.6-35.5); Mean Corpuscular Hemoglobin 30.1 pg (28.0-33.3); Mean Corpuscular Volume 91.9 fL (83.0-100.0); Mean Platelet Volume 10.7 fL (9.4-12.4); Monocytes # 1.3 K/mcL (0.0-1.3); Monocytes % 8.9 %; Neutrophils # 11.3 K/mcL (1.6-8.9); Platelet Count 358 K/mcL (140-400); Red Blood Count 3.35 M/mcL (3.82-4.97); Red Cell Distribution Width 14.2 % (11.5-14.5); Segmented Neutrophils % 76.8 %; White Blood Count 14.7 K/mcL (4.3-11.1)
[2021-06-08 06:10] LABS: Platelet Estimate Normal (Normal); Reactive Lymphocytes Present (Not Present)
[2021-06-08 06:51] LABS: BUN/Creatinine Ratio 22 (6-26); Blood Urea Nitrogen 14 mg/dL (8-23); Calcium 8.5 mg/dL (8.6-10.3); Carbon Dioxide 28 mEq/L (23-29); Chloride 103 mEq/L (98-107); Glucose 108 mg/dL (70-105); Osmolality,Calculated 287 (280-300); Sodium 138 mEq/L (136-145); eGFR For African Americans > 60 (> 60); eGFR For Non-African Americans > 60 (> 60)
[2021-06-08] MEDS: BuPROPion SR (12 HR) 150 MG TABLET PO SCH ×2 (08:29→20:57)
[2021-06-08] MEDS: Isosorbide MONOnitrate (24 HR) 60 MG TAB.ER.24H PO SCH (08:29)
[2021-06-08] MEDS: Aspirin Enteric Coated 81 MG Tablet PO SCH (08:29)
[2021-06-08] MEDS: Budesonide/Formoterol 160/4.5 1 PUFF INH IH SCH ×2 (10:15→19:52)
[2021-06-09] MEDS ORDERED: GuaiFENesin Liq 200 MG/10 ML UDC PO PRN (05:09)
[2021-06-09] MEDS: Budesonide/Formoterol 160/4.5 1 PUFF INH IH SCH (07:53)
[2021-06-09] MEDS: Isosorbide MONOnitrate (24 HR) 60 MG TAB.ER.24H PO SCH (08:05)
[2021-06-09] MEDS: Aspirin Enteric Coated 81 MG Tablet PO SCH (08:05)
[2021-06-09] MEDS: BuPROPion SR (12 HR) 150 MG TABLET PO SCH (08:05)
[2021-06-09 11:06] VITALS: BP 114/62; PULSE 76; TEMP 98.3
[2021-06-09] MEDS ORDERED: Furosemide 40 MG/4 ML VIAL IVP ONE (11:47)
[2021-06-09 11:55] VITALS: O2SAT 97
== END 2021-06-09 18:33 | disposition home health service (06) | DRG 438 ==
LOC: 3ANU 14:09 → EMEROOARM 14:09 → 3ANU 20:52
PROVIDERS: ADMIT Student in an Organized Health Care Education/Training Program; ATTEND Student in an Organized Health Care Education/Training Program